=== PATIENT | male | born 1970 | race Caucasian/White ===

== ENCOUNTER 2020-10-27 09:17 | Day surgery (SDC) | payer BC ==
[2020-10-27] MEDS ORDERED: Lactated Ringers 1,000 ML IV SCH ×2 (09:30→10:15)
[2020-10-27] MEDS ORDERED: Sodium Chloride 0.9% 10 ML Syringe FLUSH PRN (10:15)
[2020-10-27] MEDS ORDERED: Midazolam 1 MG/ML 2 ML SDV ONE (10:44)
[2020-10-27] MEDS ORDERED: Propofol 200 MG/20 ML SDV ONE (10:44)
--- NOTE | 2020-10-27 11:06 | PCM.PN ---
- General Info Date of Service: 10/27/20 - Review of Systems Systems Review Comment:: 50-year-old male here for his initial screening colonoscopy. He denies any recent changes in bowel pattern or known family history of colon cancer. He is medically stable to proceed today. His recent history and physical is reviewed and no significant changes are noted. I have discussed the proposed colonoscopy with the patient. Risks such as but not limited to bleeding and GI injury reviewed. He agrees to proceed. - Patient Data Vitals - Most Recent: Last Vital Signs Temp 97.5 F 10/27/20 09:27 Pulse 64 10/27/20 09:27 Resp 16 10/27/20 09:27 BP 128/91 H 10/27/20 09:27 Pulse Ox 99 10/27/20 09:27 Weight - Most Recent: 108.862 kg Med Orders - Current: Current Medications Lactated Ringer's (Ringers, Lactated) 1,000 mls @ 50 mls/hr IV ASDIRECTED RETA Last Admin: 10/27/20 09:38 Dose: 50 mls/hr Documented by: Sodium Chloride (Sodium Chloride 0.9% 10 Ml Syringe) 10 ml FLUSH Q8HR PRN PRN Reason: keep vein open Discontinued Medications Lactated Ringer's (Ringers, Lactated) 1,000 mls @ 50 mls/hr IV ASDIRECTED RETA Midazolam HCl (Midazolam 1 Mg/Ml 2 Ml Sdv) Confirm Administered Dose 4 mg .ROUTE .STK-MED ONE Stop: 10/27/20 10:45 Propofol (Propofol 200 Mg/20 Ml Sdv) Confirm Administered Dose 400 mg .ROUTE .STK-MED ONE Stop: 10/27/20 10:45 Sepsis Event Note - Focused Exam Vital Signs: Vital Signs Temp Pulse Resp BP Pulse Ox 10/27/20 09:27 97.5 F 64 16 128/91 H 99 - Problem List Review Problem List Initiated/Reviewed/Updated: Yes - My Orders Last 24 Hours: My Active Orders 10/27/20 Breakfast Nothing Per Oral Diet [DIET] 10/27/20 09:30 Patient to Empty Bladder [RC] ASDIRECTED Peripheral IV Care [RC] . DIRECTED Lactated Ringers [Ringers, Lactated] 1,000 ml IV ASDIRECTED Peripheral IV Insertion Adult [OM.PC] Routine 10/27/20 10:15 Sodium Chloride 0.9% [Saline Flush] 10 ml FLUSH Q8HR PRN 10/27/20 10:30 Verify Patient Consent Obtain [RC] ASDIRECTED - Assessment Assessment:: Colon cancer screening - Plan Plan:: Colonoscopy
--- NOTE | 2020-10-27 11:32 | PCM.OPNOTE ---
- General Post-Op/Procedure Note Date of Surgery/Procedure: 10/27/20 Operative Procedure(s): Colonoscopy with Polypectomy Findings: Small Cecal Polyp Few left colon diverticuli Pre Op Diagnosis: Colon Cancer Screening Post-Op Diagnosis: Colon Polyp. Sigmoid Diverticulosis Anesthesia Technique: MAC Primary Surgeon: Sonny Parks Pathology: Colon Polyp EBL in mLs: 0 Complications: None Condition: Good
--- NOTE | 2020-10-27 12:37 | OR ---
DATE OF SURGERY: 10/27/2020 SURGEON: Sonny Parks MD PREOPERATIVE DIAGNOSIS: Colon cancer screening. POSTOPERATIVE DIAGNOSIS: Colon polyp and sigmoid diverticulosis. OPERATION PERFORMED: Colonoscopy with polypectomy. INDICATIONS FOR SURGERY: This 50-year-old male is referred today for his initial screening colonoscopy. He denies any recent change in bowel pattern. FINDINGS: A single polyp was noted on today's exam. This was a 7 mm sessile polyp in the cecum. The patient also has rare scattered diverticuli which do not appear to be acutely inflamed or otherwise complicated in the sigmoid region. The remainder of the colon and terminal ileum appeared normal. DESCRIPTION OF PROCEDURE: The patient was taken to the operating room. He was given intravenous sedation, and with him in the left lateral decubitus position, digital rectal exam was performed showing no rectal masses. The Olympus colonoscope was inserted into the rectum. Retroflexed examination of the rectal canal was performed. The scope was then carefully advanced under direct visualization through the entire length of the colon until the cecum was reached. Cecal acquisition was confirmed by noting the normal internal cecal anatomy including the appendiceal orifice and the ileocecal valve. The light was also noted to transilluminate the abdominal wall in the right lower quadrant. The ileocecal valve was cannulated and the terminal ileum examined and appeared normal. The scope was then withdrawn back into the cecum where the above-described polyp was identified. This was removed in its entirety with multiple bites of the cold biopsy forceps. The examination was then continued, sequentially re-examining the colonic segments, as the colonoscope was withdrawn. After the entire colon and rectum had been fully examined, the scope was removed, and the patient was taken from the operating room in satisfactory condition. ESTIMATED BLOOD LOSS: Zero. COMPLICATIONS: None. PROGNOSIS: Good. /[id number]/MODL
== END 2020-10-27 13:22 | disposition home or self-care (01) ==
LOC: KA.SDS 09:17
PROVIDERS: ATTEND Surgery
DX: Z12.11 Encounter for screening for malignant neoplasm of colon (principal); D12.0 Benign neoplasm of cecum; K57.30 Diverticulosis of large intestine without perforation or abscess without bleeding; E78.00 Pure hypercholesterolemia, unspecified; I10 Essential (primary) hypertension; E29.1 Testicular hypofunction; E55.9 Vitamin D deficiency, unspecified; M10.9 Gout, unspecified; Z79.899 Other long term (current) drug therapy; Z98.890 Other specified postprocedural states
CPT/HCPCS: 00812; J2250; J2704; J7120

== ENCOUNTER 2024-03-26 08:00 | Day surgery (SDC) | payer BC ==
[~2024-03-26 08:00] MED LIST: Sodium Chloride 0.9% 10 ML Syringe FLUSH PRN
[2024-03-26] MEDS: Lactated Ringers 1,000 ML IV SCH (08:15)
[2024-03-26] MEDS ORDERED: Midazolam 1 MG/ML 2 ML SDV ONE (08:51)
[2024-03-26] MEDS ORDERED: Propofol 200 MG/20 ML SDV ONE (08:51)
== END 2024-03-26 10:32 | disposition home or self-care (01) ==
LOC: KA.SDS 08:00
PROVIDERS: ATTEND Surgery
DX: Z12.11 Encounter for screening for malignant neoplasm of colon (principal); K57.30 Diverticulosis of large intestine without perforation or abscess without bleeding; Z86.0100 Personal history of colon polyps, unspecified; E78.00 Pure hypercholesterolemia, unspecified; I10 Essential (primary) hypertension; Z79.899 Other long term (current) drug therapy
CPT/HCPCS: 00812; J2250; J2704; J7120